=== PATIENT | female | born 1960 | race Caucasian/White ===

== ENCOUNTER 2024-11-17 19:07 | Emergency (ER) | payer BC, SELFPAY ==
[2024-11-17 19:08] VITALS: BMI 17.4
[2024-11-17 20:04] VITALS: BP 113/79; PULSE 78; RESP 18; TEMP 37.4; O2SAT 98
--- NOTE | 2024-11-17 20:15 | EKG_ITS ---
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
--- NOTE | 2024-11-17 20:15 | XR_ITS ---
Examination: PA lateral chest 2 views Technique: Upright PA lateral chest 2 views Indications: Onset chest pain today. Findings: Normal heart size No lobar pneumonia or pulmonary edema Air distended stomach The osseous structures are intact Impression: Mild hyperexpansion No pneumonia or pulmonary edema
--- NOTE | 2024-11-17 20:16 | PD.EDRME ---
Rapid Medical Screening Exam RME Arrival date/time: 11/17/24 19:07 64-year-old female with a history of hypothyroidism reports with complaint of chest pain and fatigue x 1 day Chief Complaint: Chest Pain Time Seen by Provider: 11/17/24 19:14 Vital signs: Vital Signs Temperature 99.3 F 11/17/24 20:04 Pulse Rate 78 11/17/24 20:04 Respiratory Rate 18 11/17/24 20:04 Blood Pressure 113/79 11/17/24 20:04 Pulse Oximetry (%) 98 11/17/24 20:04 Oxygen Delivery Method Room Air 11/17/24 20:04
[2024-11-17 20:49] LABS: Basophils % (Auto) 0 % (0-2.5); Eosinophils % (Auto) 0 % (0-10); Hematocrit 42.3 % (36.0-46.0); Hemoglobin 14.4 g/dL (12.0-16.0); Immature Granulocytes % (Auto) 0 % (0-0); Immature Granulocytes Auto 0.02 Thou/mm3 (0.00-0.00); Lymphocytes # (Auto) 0.3 Thou/mm3 (1.0-4.8); Lymphocytes % (Auto) 4 % (10-50); Mean Corpuscular Hemoglobin 29.3 pg (25.0-35.0); Mean Corpuscular Volume 86 fL (80-100); Monocytes # (Auto) 0.5 Thou/mm3 (0.0-0.8); Monocytes % (Auto) 6 % (0-12); Neutrophils # (Auto) 7.6 Thou/mm3 (1.8-7.7); Neutrophils % (Auto) 90 % (37-80); Nucleated Red Blood Cell % 0 /100 WBC (0); Platelet Count 188 Thou/mm3 (140-440); RDW Standard Deviation 44.7 fL (36.4-46.3); Red Blood Count 4.92 Miln/mm3 (4.00-5.20); White Blood Count 8.5 Thou/mm3 (3.6-11.0)
[2024-11-17 21:03] LABS: Alanine Aminotransferase 20 U/L (10-49); Albumin, Serum 4.7 gm/dL (3.4-4.8); Albumin/Globulin Ratio 2.5 (1.2-2.2); Alkaline Phosphatase 63 U/L (46-116); Anion Gap 5 (7-16); Aspartate Amino Transferase 19 U/L (0-34); BUN/Creatinine Ratio 28 Ratio (12-20); Bilirubin,Total 0.6 mg/dL (0.3-1.2); Blood Urea Nitrogen 22 mg/dL (9-23); Calcium 9.7 mg/dL (8.3-10.6); Calcium (Corrected) 9.7 mg/dL (8.5-10.1); Carbon Dioxide 26.7 mMol/L (20.0-31.0); Chloride 110 mMol/L (98-107); Creatinine (Component) 0.8 mg/dL (0.6-1.3); Estimated Creatinine Clearance 59.3 mL/min (>60); Free T4 (Free Thyroxine) 1.18 ng/dL (0.89-1.76); Globulin 1.9 gm/dL (2.3-3.5); Glucose 134 mg/dL (74-106); Osmolality,Calculated 288 (275-295); Potassium 4.1 mMol/L (3.4-5.1); Sodium 142 mMol/L (136-145); Total Protein 6.6 gm/dL (5.7-8.2); Troponin I < 0.002 ng/mL (0.0-0.045); eGFR > 60 See Note
[2024-11-17 21:22] LABS: Collection Type, Urine Clean Catch
[2024-11-17 21:30] LABS: Bilirubin,Urine Negative (Negative); Blood,Urine Negative (Negative); Clarity,Urine Clear (Clear/Hazy); Color,Urine Lt-Yellow (Lt Yel-Yel); Glucose, Urine Negative (Negative); Ketones,Urine Negative (Negative); Leukocyte Esterase,Urine Negative (Negative); Nitrite,Urine Negative (Negative); Protein,Urine Negative (Neg - Trace); RBC,Urine 4 /hpf (0-3); Squamous Epithelial Cell,Urine 1 /hpf (0-5); Urobilinogen,Urine Negative mg/dL (0.0-1.0); WBC,Urine 4 /hpf (0-5)
--- NOTE | 2024-11-17 22:09 | EDNOTE_ITS ---
ED Chest Pain RME/HPI General Chief Complaint: Chest Pain Stated Complaint: CHEST PRESSURE, SOB, HIGH HR Time Seen by Provider: 11/17/24 19:14 Arrival date/time: 11/17/24 19:07 RME / HPI RME / HPI narrative: 64-year-old female patient with significant history of hypothyroidism came in for evaluation regarding substernal chest pain, burping a lot, fatigue, and shortness of breath. Is been ongoing since last night. Denies any fever denies any cough but noticed feeling febrile. Denies any other complaints no medications taken prior to arrival. Related Data Home Medications ?Medication ?Instructions ?Recorded ?Confirmed levothyroxine 50 mcg capsule 50 mcg PO QDAY 11/17/24 0 11/17/24 Allergies Allergy/AdvReac Type Severity Reaction Status Date / Time Sulfa (Sulfonamide Allergy Mild Rash Verified 11/17/24 19:11 Antibiotics) Review of Systems Review of Systems Narrative Review of Systems: Review of system reviewed and within normal limits except mentioned in HPI ED Exam Narrative Physical exam: VITAL SIGNS: Reviewed. GENERAL APPEARANCE: Alert and interactive, follows commands, no acute distress, HEAD AND FACE: Non-traumatic. ENT: PERRL, pink conjunctivitis, eyelid no trauma, Mucous membrane moist. NECK: Supple, nontender, no nuchal rigidity. CHEST: No tenderness, no crepitus, no paradoxical movement, no retractions. LUNGS: Clear, well ventilated, symmetric, no rales, no wheezing, no ronchi, no stridor, good breath sounds bilaterally. HEART: Regular rate, regular rhythm, no murmur, no gallops. ABDOMEN: Soft, positive bowel sounds, nondistended, no guarding, nontender, no rebound, no masses, RECTAL: Deferred. GENITAL: Deferred. NEUROLOGICAL: Gross motor function intact sensory function intact, Appropriate for age. MUSCULOSKELETAL: low back nontender, full range of motion. EXTREMITIES: Nontender, full range of motion. SKIN: Color pink, dry, no rash, no lacerations, no abrasions, no contusions. LYMPHATICS: Deferred. Course Quality Measures none Orders Category Date Time Status EKG (ED ONLY) *Do not use* NOW Care 11/17/24 20:16 Completed EKG (ED Only) Stat Exams 11/17/24 20:15 Draft XR chest 2V Stat Exams 11/17/24 20:15 Completed CBC Stat Lab 11/17/24 20:32 Completed CMP [Comprehensive Metabolic Panel] Stat Lab 11/17/24 20:32 Completed Free T4 (Free Thyroxine) Stat Lab 11/17/24 20:32 Completed TSH [Thyroid Stimulating Hormone] Stat Lab 11/17/24 20:32 Completed Troponin I Stat Lab 11/17/24 20:32 Completed UA [Urinalysis] Stat Lab 11/17/24 20:56 Completed Vital Signs Vital signs: Vital Signs Temperature 99.3 F 11/17/24 20:04 Pulse Rate 78 11/17/24 20:04 Respiratory Rate 18 11/17/24 20:04 Blood Pressure 113/79 11/17/24 20:04 Pulse Oximetry (%) 98 11/17/24 20:04 Oxygen Delivery Method Room Air 11/17/24 20:04 Chest Pain MDM Narrative MDM Narrative:: 64-year-old female patient with significant history of hypothyroidism came in for evaluation regarding substernal chest pain, burping a lot, fatigue, and shortness of breath. Is been ongoing since last night. Denies any fever denies any cough but noticed feeling febrile. Denies any other complaints no medications taken prior to arrival. Patient cardiac workup including chest x-ray EKG all came back normal. Results discussed with the patient and family. Patient is probably having viral infection. Patient's heart rate was noted to be 78 prior to discharge. Patient appears nontoxic and hemodynamically stable. Patient discharged home and instructed to follow-up with primary care provider in 24 to 48 hours. Instructed to return to the emergency department immediately if worsening of symptoms Patient data External records reviewed:: None Clinical information provided by:: patient and family Social determinants that could affect healthcare access:: none Patient has the following chronic illnesses:: Hypothyroidism How is presenting disease/condition affected by chronic disease/condition?: uneffected by Evaluation data The following diagnostics were reviewed and interpreted by me:: lab results, radiology exam(s) and EKG tracing(s) Lab and/or radiology exams considered but not ordered:: None Interpretation Summary: See results in MDM Medications / Prescriptions Medications or Prescriptions considered but not ordered:: None Medication administrations:: None Consultations Consultation(s) initiated? (list below): No Diagnosis Chest Pain Differential Diagnosis: pneumothorax and chest pain Most likely diagnosis given after review of the tests above:: Chest pain, noncardiac, URI Admission Indicated Admission indicated?: not indicated Explain why admission is indicated or not indicated:: Stable Admission Request Was there a request for admission?: No Disposition Plan Disposition Plan: Discharge Discharge Attestation Discharge Attestation: The patient and all family members were given an opportunity to ask questions and understood the discharge instructions. Discharge instructions specifically effects, indications for sooner follow up or return to the emergency department, and the expected course of current diagnosis. Patient condition: Stable Discharge Plan Plan Patient Disposition: HOME (Self Care) Disposition Comment: Stable Prescriptions/Referrals Prescriptions/Med Rec: No Action levothyroxine 50 mcg capsule 50 mcg PO QDAY Problem List Clinical Impression: Chest pain, URI (upper respiratory infection) Patient/Caregiver Discharge Instructions Discharge Activity: activity as tolerated Education Materials: ED Chest Pain, Noncardiac Additional Instructions: Thank you for the opportunity for serving you today. You are stable for discharged . You are advised to: Follow-up with your PCP in 1 to 2 days Return to ED for worsening of symptoms Increase oral fluids Take Tylenol or Motrin as needed Print Language: Maltese Stand Alone Forms: Lucia Award Info., Patient Portal Info Letter PA/PHARMACOGNOSY TEACHER Supervising Physician PA/PHARMACOGNOSY TEACHER Supervising Physician: MD Marcia
== END 2024-11-17 22:11 | disposition home or self-care (01) ==
PROVIDERS: Physician Assistant; Emergency Provider Emergency Medicine
DX: J06.9 Acute upper respiratory infection, unspecified (principal); E03.9 Hypothyroidism, unspecified; Z79.890 Hormone replacement therapy
CPT/HCPCS: 36415; 71046; 80053; 81001; 84439; 84443; 84484; 85025; 93005; 99283